=== PATIENT | female | born 1960 | race Caucasian/White ===

== ENCOUNTER 2016-10-07 09:48 | Emergency (ER) | payer BC ==
[2016-10-07 11:04] VITALS: BP 138/79
--- NOTE | 2016-10-07 12:33 | UC ---
Knee Pain HPI - HPI Summary HPI Summary: got clipped in the right knee by a playful dog last night, patient fell to the ground - History of Current Complaint Chief Complaint: UCLowerExtremity Stated Complaint: LEG COMPLAINT Time Seen by Provider: 10/07/16 12:24 Hx Obtained From: Patient ?: No Onset/Duration: Sudden Onset, Lasting Days - 1, Still Present Severity Initially: Moderate Severity Currently: Moderate - with certian movement and weight bearing Location Of Injury: lateral right knee Pain Intensity: 4 Pain Scale Used: 0-10 Numeric Character: Aching, Stiffness Aggravating Factor(s): Movement, Weight Bearing Alleviating Factor(s): Rest, Position Associated Signs And Symptoms: Positive: Swelling Able to Bear Weight: Yes - with pain - Allergies/Home Medications Allergies/Adverse Reactions: Allergies Allergy/AdvReac Type Severity Reaction Status Date / Time No Known Allergies Allergy Verified 04/01/16 11:30 PMH/Surg Hx/FS Hx/Imm Hx Previously Healthy: Yes Endocrine History Of: Denies: Diabetes, Thyroid Disease Cardiovascular History Of: Denies: Cardiac Disorders, Hypertension, Pacemaker/ICD Respiratory History Of: Denies: COPD, Asthma GI/ History Of: Denies: Ulcer, Renal Disease - Surgical History Surgical History: Yes Surgery Procedure, Year, and Place: CARPAL TUNNEL BILATERAL WRIST wisdom teeth removed - Family History Known Family History: Positive: None Family History: no family history of cardiovascular issues - Social History Occupation: Employed Full-time Lives: With Family Alcohol Use: Weekly Substance Use Type: None Smoking Status (MU): Never Smoked Tobacco Have You Smoked in the Last Year: No - Immunization History Most Recent Influenza Vaccination: [id number] Most Recent Tetanus Shot: Uknown Review of Systems Constitutional: Negative Skin: Negative Eyes: Negative ENT: Negative Respiratory: Negative Cardiovascular: Negative Gastrointestinal: Negative Genitourinary: Negative Motor: Negative Neurovascular: Negative Musculoskeletal: Arthralgia - right knee Neurological: Negative Psychological: Negative All Other Systems Reviewed And Are Negative: Yes Physical Exam Triage Information Reviewed: Yes Appearance: Well-Appearing, No Pain Distress, Well-Nourished Vital Signs: Initial Vital Signs Temp 98.0 F 10/07/16 10:58 Pulse 74 10/07/16 10:58 Resp 18 10/07/16 10:58 BP 138/79 10/07/16 10:58 Pulse Ox 100 10/07/16 10:58 Vital Signs Reviewed: Yes Eye Exam: Normal Eyes: Positive: Conjunctiva Clear ENT Exam: Normal ENT: Positive: Normal ENT inspection, Hearing grossly normal. Negative: Nasal congestion, Nasal drainage, Trismus, Muffled/hoarse voice Neck exam: Normal Neck: Positive: Supple, Nontender Respiratory Exam: Normal Respiratory: Positive: Chest non-tender, No respiratory distress, No accessory muscle use Cardiovascular Exam: Normal Cardiovascular: Positive: RRR, Pulses Normal, Brisk Capillary Refill Musculoskeletal Exam: Normal Musculoskeletal: Positive: Strength Intact, ROM Intact, No Edema Neurological Exam: Normal Neurological: Positive: Alert, Muscle Tone Normal Psychological Exam: Normal Skin Exam: Normal Diagnostics - Radiology No standard instances Xray Interpretation: No Acute Changes Radiology Interpretation Completed By: ED Physician, Radiologist Knee Pain Course/Dx - Course Course Of Treatment: knee immoblizer, crutches, ice, ibuprofen follow with ortho in 3-4 days - Differential Dx/Diagnosis Differential Diagnosis/HQI/PQRI: Contusion, Fracture (Closed), Internal Derangement Of Knee, Sprain, Strain Provider Diagnoses: Right Knee Sprain Discharge - Discharge Plan Condition: Stable Disposition: HOME Patient Education Materials: Ibuprofen (By mouth), Crutch Instructions (ED), Knee Pain (ED) Referrals: Issac Abad MD [Medical Doctor] - 4 Days Shankar Junior MD [Primary Care Provider] -
--- NOTE | 2016-10-07 13:11 | RAD ---
Indication: Right knee pain, lateral knee pain. 4 views of the right knee demonstrates no fracture. No other bone or joint abnormality is identified. IMPRESSION: No fracture of the right knee is noted.
== END 2016-10-07 13:30 | disposition home or self-care (01) ==
LOC: UCEAST 09:48
DX: S83.91XA Sprain of unspecified site of right knee, initial encounter (principal); W54.1XXA Struck by dog, initial encounter; Y93.9 Activity, unspecified; Y92.9 Unspecified place or not applicable
CPT/HCPCS: 99212; G0463

== ENCOUNTER 2016-10-24 08:35 | Emergency (ER) | payer BC ==
[2016-10-24 08:49] VITALS: BP 134/76
[2016-10-24] MEDS ORDERED: Tetan/Diph/Pertus SYR(Tdap)* 0.5 ML SYR(BOOSTRIX) use SYR IM ONE (09:00)
--- NOTE | 2016-10-24 12:50 | UC ---
IMichoacano,Ella, scribed for Rosaura Segovia MD on 10/24/16 at 0902 . Laceration HPI - HPI Summary HPI Summary: THis 56 y/o female presents to [facility] for forehead laceration since 1930 PM. She was opening a closet door when she impacted her forehead with the door. Pt denies any LOC, but reports AMBRIZ and "a lot of bleeding" at the time of onset. Laceration was bandaged with band-aid, and mild bleeding is noted overnight. No bleeding is noted at the time of initial evaluation. Pt is not sure if she is UTD with tetanus. Plan of care involving simple skin adhesive is discussed with pt, and she is agreeable. She is instructed to avoid sunlight and stretching of wound until complete wound closure. - History Of Current Complaint Chief Complaint: UCLaceration Stated Complaint: HEAD LACERATION Time Seen by Provider: 10/24/16 08:49 Hx Obtained From: Patient, Medical Records Laceration Location: Head - forehead Mechanism Of Injury: Blunt Trauma Onset/Duration: Sudden Onset, Lasting Hours, Still Present Severity: Mild Pain Intensity: 0 Pain Scale Used: 0-10 Numeric Aggravating Factors: Nothing - Allergies/Home Medications Allergies/Adverse Reactions: Allergies Allergy/AdvReac Type Severity Reaction Status Date / Time No Known Allergies Allergy Verified 10/24/16 08:37 PMH/Surg Hx/FS Hx/Imm Hx Previously Healthy: Yes - Surgical History Surgical History: Yes Surgery Procedure, Year, and Place: CARPAL TUNNEL BILATERAL WRIST. wisdom teeth removed - Family History Known Family History: Positive: Diabetes - Father -- type II. Negative: Cardiac Disease - Social History Lives: With Family Alcohol Use: Weekly Alcohol Amount: 1xweek Substance Use Type: None Smoking Status (MU): Never Smoked Tobacco Have You Smoked in the Last Year: No - Immunization History Most Recent Influenza Vaccination: [id number] Most Recent Tetanus Shot: Uknown Review of Systems Constitutional: Negative Skin: Other - Vertical laceration at forehead. Bleeding controlled Eyes: Negative ENT: Negative Respiratory: Negative Cardiovascular: Negative Gastrointestinal: Negative Genitourinary: Negative Motor: Negative Neurovascular: Negative Musculoskeletal: Negative Neurological: Headache - Currently resolved Psychological: Negative All Other Systems Reviewed And Are Negative: Yes Physical Exam Triage Information Reviewed: Yes Appearance: Well-Appearing, No Pain Distress, Well-Nourished Vital Signs: Initial Vital Signs Temp 97.9 F 10/24/16 08:39 Pulse 98 10/24/16 08:39 Resp 18 10/24/16 08:39 BP 134/76 10/24/16 08:39 Pulse Ox 98 10/24/16 08:39 Vital Signs Reviewed: Yes Eyes: Positive: Conjunctiva Clear ENT: Positive: Normal ENT inspection Neck: Positive: Supple Respiratory: Positive: Lungs clear, Normal breath sounds, No respiratory distress Cardiovascular: Positive: RRR, No Murmur, Pulses Normal, Brisk Capillary Refill Musculoskeletal: Positive: Strength Intact, ROM Intact Neurological Exam: Normal Neurological: Positive: Alert, Muscle Tone Normal Psychological Exam: Normal Skin: Positive: Other - 2 cm vertical lacertaion on right-mid lower forehead, bleeding controlled, does not separate when touched Laceration Repair - Laceration Repair 1 Description: Linear Laceration Size After Repair: Length (cm) - 2 cm Modified For Repair: No Cleansing Completed Via Routine Prep: Yes Irrigation With Pressure Irrigation Device: No Closure Material: Skin Adhesive Laceration Course/Dx - Course/Dx Course Of Treatment: discussed with pt that wound is too old for sutures, and does not really need sutures for repair because it does not separate or open up. Discussed possibility of skin adhesive and pt is agreeable. - Differential Dx - Laceration/Wound Differental Diagnoses: Abrasion, Healing Wound, Laceration Provider Diagnoses: facial laceration with skin adhesive closure Discharge - Discharge Plan Condition: Stable Disposition: HOME Patient Education Materials: Skin Adhesive Care (ED) Referrals: Shankar Junior MD [Primary Care Provider] - Additional Instructions: Keep the wound clean and dry. You do not need to apply antibiotic ointment. The glue will fade away. After the laceration has healed you may want to look at the product "new gel plus" to help decrease the appearance of your wound. Remember to use sunscreen and use a hat to keep sun away from the wound to decrease the appearance of the scar. You were given a TDaP shot to update your tetanus, diphtheria and pertussis vaccinations. This shot is good for 10 years. Return to urgent care if you have any new or worsening symptoms. The documentation as recorded by the Michoacano smith Soohyun accurately reflects the service I personally performed and the decisions made by , Rosaura Segovia MD.
== END 2016-10-24 09:20 | disposition home or self-care (01) ==
LOC: UCEAST 08:35
DX: S01.81XA Laceration without foreign body of other part of head, initial encounter (principal); W45.8XXA Other foreign body or object entering through skin, initial encounter; W22.09XA Striking against other stationary object, initial encounter; Y93.9 Activity, unspecified; Y92.9 Unspecified place or not applicable; Z23 Encounter for immunization
CPT/HCPCS: 12011; G0168; 90471; 90715; 99211; G0463

== ENCOUNTER 2017-01-06 15:35 | Emergency (ER) | payer BC ==
[2017-01-06 16:10] VITALS: BP 125/79
--- NOTE | 2017-01-06 16:42 | UC ---
Throat Pain/Nasal Kp HPI - HPI Summary HPI Summary: 56 yo female with sinus pressure and pain as well as post nasal drip x >2 months no f/c low energy bilateral ear discomfort hx sinusitis followed by Dr. Luna - History of Current Complaint Chief Complaint: UCGeneralIllness Stated Complaint: SINUS COMPLAINT Time Seen by Provider: 01/06/17 15:58 Hx Obtained From: Patient Onset/Duration: Gradual Onset Severity: Moderate Pain Intensity: 4 Pain Scale Used: 0-10 Numeric Cough: None Associated Signs & Symptoms: Positive: Sinus Discomfort, Nasal Discharge Related History: Seasonal Allergies - Epiglottits Risk Factors Epiglottis Risk Factors: Negative - Allergies/Home Medications Allergies/Adverse Reactions: Allergies Allergy/AdvReac Type Severity Reaction Status Date / Time No Known Allergies Allergy Verified 01/06/17 15:53 Home Medications: Home Medications Acetaminophen-Guaifenesin [Refenesen Chest Congestio 650-400 mg] 1 tab PO ONCE PRN 01/06/17 [History Confirmed 01/06/17] PMH/Surg Hx/FS Hx/Imm Hx Previously Healthy: Yes Endocrine History Of: Denies: Diabetes, Thyroid Disease Cardiovascular History Of: Denies: Cardiac Disorders, Hypertension, Pacemaker/ICD Respiratory History Of: Denies: COPD, Asthma GI/ History Of: Denies: Ulcer, Renal Disease - Surgical History Surgical History: Yes Surgery Procedure, Year, and Place: CARPAL TUNNEL BILATERAL WRIST. wisdom teeth removed - Family History Known Family History: Positive: Diabetes - Father -- type II., Other - MALDONADO Negative: Cardiac Disease Family History: no family history of cardiovascular issues - Social History Alcohol Use: Weekly Alcohol Amount: 1xweek Substance Use Type: None Smoking Status (MU): Never Smoked Tobacco Have You Smoked in the Last Year: No - Immunization History Most Recent Influenza Vaccination: [id number] Most Recent Tetanus Shot: Uknown Review of Systems Constitutional: Fatigue Skin: Negative Eyes: Negative ENT: Ear Ache, Nasal Discharge Respiratory: Negative Cardiovascular: Negative Gastrointestinal: Negative Genitourinary: Negative Motor: Negative Neurovascular: Negative Musculoskeletal: Negative Neurological: Headache Psychological: Negative All Other Systems Reviewed And Are Negative: Yes Physical Exam Triage Information Reviewed: Yes Appearance: Well-Appearing, No Pain Distress, Well-Nourished Vital Signs: Initial Vital Signs Temp 98 F 01/06/17 15:45 Pulse 81 01/06/17 15:45 Resp 16 01/06/17 15:45 BP 125/79 01/06/17 15:45 Pulse Ox 100 01/06/17 15:45 Vital Signs Reviewed: Yes Eyes: Positive: Conjunctiva Clear ENT: Positive: Hearing grossly normal, Nasal congestion, TM bulging, Other: - bilat max and ethmoid tenderness. Negative: TM red, Tonsillar swelling, Tonsillar exudate Neck: Positive: Supple, Nontender, No Lymphadenopathy Respiratory: Positive: Lungs clear, Normal breath sounds, No respiratory distress, No accessory muscle use Cardiovascular: Positive: RRR, No Murmur Musculoskeletal: Positive: ROM Intact, No Edema Neurological: Positive: Alert Psychological Exam: Normal Skin Exam: Normal Throat Pain/Nasal Course/Dx - Differential Dx/Diagnosis Provider Diagnoses: acute sinusitis Discharge - Discharge Plan Condition: Stable Disposition: HOME Prescriptions: Cefuroxime Axetil [Ceftin 250 MG] 250 mg PO BID #20 tab Patient Education Materials: Sinusitis (ED) Referrals: Shankar Junior MD [Primary Care Provider] - 1 Week (if not better)
== END 2017-01-06 16:46 | disposition home or self-care (01) ==
LOC: UCCORT 15:35
DX: J01.90 Acute sinusitis, unspecified (principal); H92.03 Otalgia, bilateral
CPT/HCPCS: 99212; G0463

== ENCOUNTER 2017-06-24 10:45 | Emergency (ER) | payer BC ==
[2017-06-24 10:53] VITALS: BP 125/90
--- NOTE | 2017-06-24 11:11 | UC ---
Skin Complaint HPI - History of Current Complaint Chief Complaint: Minoo Stated Complaint: BEE STING Hx Obtained From: Patient - was stung by a hornet above R eye last evening, was very painful and became swollen. she did take benadryl 50mg in night which gave only little relief. Today face appears swollen under eye. + ?: No Onset/Duration: Sudden Onset Onset Severity: Severe Current Severity: Moderate Location: Discrete, Face Aggravating Factor(s): Touch Alleviating Factor(s): Nothing Associated Signs & Symptoms: Positive: Tenderness. Negative: Nausea, Weakness, Difficulty Breathing, Cough, Wheezing, Chest Pain, Throat Tightening, Syncope, Red Streaks Related History: Insect Bite/Sting - white faced hornet - Allergy/Home Medications Allergies/Adverse Reactions: Allergies Allergy/AdvReac Type Severity Reaction Status Date / Time No Known Allergies Allergy Verified 06/24/17 10:47 Home Medications: Home Medications diPHENhydraMINE PO* [Benadryl PO 25 MG TAB*] 2 tab PO 06/24/17 [History] Review of Systems Constitutional: Negative Skin: Negative - no rash at any time ENT: Negative Respiratory: Negative Cardiovascular: Negative Genitourinary: Negative Psychological: Negative Is Patient Immunocompromised?: Yes All Other Systems Reviewed And Are Negative: Yes PMH/Surg Hx/FS Hx/Imm Hx Previously Healthy: Yes Neurological History: Other - R sided facial neuralgia Other Neurological History: neruralgia Psychological History: Depression - Surgical History Surgical History: Yes Surgery Procedure, Year, and Place: CARPAL TUNNEL BILATERAL WRIST. wisdom teeth removed - Family History Known Family History: Positive: Diabetes - Father -- type II., Other - MALDONADO Negative: Cardiac Disease Family History: no family history of cardiovascular issues - Social History Occupation: Employed Full-time Lives: With Family Alcohol Use: Weekly Alcohol Amount: 1xweek Substance Use Type: None Smoking Status (MU): Never Smoked Tobacco Have You Smoked in the Last Year: No - Immunization History Most Recent Influenza Vaccination: [id number] Most Recent Tetanus Shot: Uknown Physical Exam Triage Information Reviewed: Yes Appearance: Well-Appearing, No Pain Distress, Well-Nourished Vital Signs: Initial Vital Signs Temp 98.7 F 06/24/17 10:49 Pulse 76 06/24/17 10:49 Resp 16 06/24/17 10:49 BP 125/90 06/24/17 10:49 Pulse Ox 98 06/24/17 10:49 Vital Signs Reviewed: Yes Eyes: Positive: Conjunctiva Clear, Other: - periorbital swelling R eye, no change PEARRLA ENT: Positive: Normal ENT inspection Neck exam: Normal Respiratory Exam: Normal Respiratory: Positive: Lungs clear. Negative: Wheezing Cardiovascular Exam: Normal Cardiovascular: Positive: RRR, No Murmur, Pulses Normal Neurological Exam: Normal Neurological: Positive: Alert Psychological Exam: Normal Skin: Negative: rashes Course/Dx - Differential Diagnoses - Skin Complaint Differential Diagnoses: Other - local reaction bee sting systemic allergic rx - Diagnoses Provider Diagnoses: Bee sting Discharge - Discharge Plan Condition: Good Disposition: HOME Patient Education Materials: Insect Bite or Sting (ED) Referrals: Shankar Junior MD [Primary Care Provider] - 2 Days (if no better) Additional Instructions: apply cool packs to R eye for swelling and pain Use benadryl 50mg every 6 hours for the next 24-48hours Then may transition to claritin or zyrtec (over the counter) if needed
== END 2017-06-24 11:15 | disposition home or self-care (01) ==
LOC: UCEAST 10:45
DX: T63.441A Toxic effect of venom of bees, accidental (unintentional), initial encounter (principal); W57.XXXA Bitten or stung by nonvenomous insect and other nonvenomous arthropods, initial encounter; Y92.9 Unspecified place or not applicable
CPT/HCPCS: 99211; G0463

== ENCOUNTER 2018-07-10 13:10 | Emergency (ER) | payer BC ==
[2018-07-10 13:47] VITALS: BP 121/83
--- NOTE | 2018-07-10 14:09 | UC ---
Complaint Female HPI - HPI Summary HPI Summary: urinary urgency , dysuria x 1 day + frequency , no fever, no chills, no cva tenderness - History Of Current Complaint Chief Complaint: UCGU Stated Complaint: URINARY COMPLAINT Time Seen by Provider: 07/10/18 13:43 Hx Obtained From: Patient Hx Last Menstrual Period: n/a Onset/Duration: Gradual Onset, Lasting Days - 1, Still Present Timing: Constant Severity Initially: Moderate Severity Currently: Moderate Pain Intensity: 4 Pain Scale Used: 0-10 Numeric Character: Cramping Aggravating Factor(s): Urination Alleviating Factor(s): Nothing Associated Signs And Symptoms: Negative: Fever, Back Pain, Vaginal Bleeding/ Discharge, Vaginal Discharge, Nausea, Vomiting(# Of Episodes =), Genital Swelling, Genital Blisters, Retained Foregin Body (Specify) - Allergies/Home Medications Allergies/Adverse Reactions: Allergies Allergy/AdvReac Type Severity Reaction Status Date / Time No Known Allergies Allergy Verified 07/10/18 13:42 Home Medications: Home Medications Mirabegron (NF) [Myrbetriq (NF)] 50 mg PO DAILY 07/10/18 [History Confirmed 06/19] PMH/Surg Hx/FS Hx/Imm Hx - Additional Past Medical History Additional PMH: trigeminal neuralgia - Surgical History Surgical History: Yes Surgery Procedure, Year, and Place: CARPAL TUNNEL BILATERAL WRIST. wisdom teeth removed - Family History Known Family History: Positive: Hypertension, Diabetes - Father -- type II., Other - MALDONADO Negative: Cardiac Disease Family History: no family history of cardiovascular issues - Social History Alcohol Use: Weekly Alcohol Amount: 1xweek Substance Use Type: None Smoking Status (MU): Never Smoked Tobacco Have You Smoked in the Last Year: No - Immunization History Most Recent Influenza Vaccination: 2015/2016 Most Recent Tetanus Shot: Uknown Review of Systems Constitutional: Negative Skin: Negative Eyes: Negative ENT: Negative Respiratory: Negative Cardiovascular: Negative Genitourinary: Dysuria, Hematuria, Frequency, Urgency Neurovascular: Negative Musculoskeletal: Negative Is Patient Immunocompromised?: No All Other Systems Reviewed And Are Negative: Yes Physical Exam Triage Information Reviewed: Yes Appearance: Well-Appearing, No Pain Distress, Well-Nourished Vital Signs: Initial Vital Signs Temp 99 F 07/10/18 13:39 Pulse 88 07/10/18 13:39 Resp 15 07/10/18 13:39 BP 121/83 07/10/18 13:39 Pulse Ox 98 07/10/18 13:39 Vital Signs Reviewed: Yes Eye Exam: Normal Eyes: Positive: Conjunctiva Clear ENT: Positive: Normal ENT inspection, Hearing grossly normal, Pharynx normal Neck: Positive: Supple, Nontender, No Lymphadenopathy Respiratory: Positive: Chest non-tender, Lungs clear, Normal breath sounds Cardiovascular: Positive: RRR, No Murmur, Pulses Normal Skin Exam: Normal Complaint Female Dx - Differential Dx/Diagnosis Provider Diagnoses: dysuria Discharge - Sign-Out/Discharge Documenting (check all that apply): Patient Departure All imaging exams completed and their final reports reviewed: No Studies - Discharge Plan Condition: Stable Disposition: HOME Patient Education Materials: Dysuria (ED) Referrals: Shankar Junior MD [Primary Care Provider] - 5 Days Additional Instructions: normal UA no UTI please follow up with your Urologist - Billing Disposition and Condition Condition: STABLE Disposition: Home
== END 2018-07-10 14:06 | disposition home or self-care (01) ==
LOC: UCCORT 13:10
DX: R30.0 Dysuria (principal)
CPT/HCPCS: 81003; 99211; G0463

== ENCOUNTER 2019-01-11 14:03 | Emergency (ER) | payer BC ==
[2019-01-11 15:21] VITALS: BP 128/73
--- NOTE | 2019-01-11 15:48 | UC ---
UC General HPI - HPI Summary HPI Summary: sinus headache for a month. her ent tx with steroids which helped but it never cleared. now worse again and not relieved by pseudaphed. - History of Current Complaint Chief Complaint: UCHeadache Stated Complaint: SINUSES Time Seen by Provider: 01/11/19 15:39 Hx Obtained From: Patient Hx Last Menstrual Period: n/a Onset/Duration: Gradual Onset Timing: Constant Pain Intensity: 6 Associated Signs & Symptoms: Positive: Headache - Allergy/Home Medications Allergies/Adverse Reactions: Allergies Allergy/AdvReac Type Severity Reaction Status Date / Time No Known Allergies Allergy Verified 07/10/18 13:42 PMH/Surg Hx/FS Hx/Imm Hx - Additional Past Medical History Additional PMH: trigeminal neuralgia, overactive bladder, chronic sinusitis - Surgical History Surgical History: Yes Surgery Procedure, Year, and Place: CARPAL TUNNEL BILATERAL WRIST. wisdom teeth removed - Family History Known Family History: Positive: Hypertension, Diabetes - Father -- type II., Other - MALDONADO Negative: Cardiac Disease Family History: no family history of cardiovascular issues - Social History Occupation: Employed Full-time Alcohol Use: Weekly Alcohol Amount: 1xweek Substance Use Type: None Smoking Status (MU): Never Smoked Tobacco Have You Smoked in the Last Year: No - Immunization History Most Recent Influenza Vaccination: 2015/2016 Most Recent Tetanus Shot: Uknown Review of Systems All Other Systems Reviewed And Are Negative: Yes ENT: Positive: Sinus Congestion, Sinus Pain/Tenderness Neurological: Positive: Headache Physical Exam Triage Information Reviewed: Yes Appearance: Well-Appearing Vital Signs: Initial Vital Signs Temp 98.9 F 01/11/19 15:14 Pulse 80 01/11/19 15:14 Resp 16 01/11/19 15:14 BP 128/73 01/11/19 15:14 Pulse Ox 99 01/11/19 15:14 Vital Signs Reviewed: Yes Eyes: Positive: Conjunctiva Clear ENT: Positive: Pharynx normal, Nasal congestion, TMs normal, Sinus tenderness. Negative: Nasal drainage Neck: Positive: Supple, Nontender, No Lymphadenopathy Respiratory: Positive: Lungs clear, Normal breath sounds Cardiovascular: Positive: RRR, No Murmur Abdomen Description: Positive: Nontender, No Organomegaly, Soft Bowel Sounds: Positive: Present Musculoskeletal: Positive: ROM Intact Neurological: Positive: Alert Psychological: Positive: Age Appropriate Behavior Skin Exam: Normal Course/Dx - Diagnoses Provider Diagnosis: Sinusitis Discharge - Sign-Out/Discharge Documenting (check all that apply): Patient Departure All imaging exams completed and their final reports reviewed: No Studies - Discharge Plan Condition: Stable Disposition: HOME Prescriptions: Amoxicillin/Clavulanate TAB* [Augmentin TAB 875*] 875 mg PO BID 10 Days #20 tab Patient Education Materials: Sinusitis (ED) Referrals: Shankar Junior MD [Primary Care Provider] - 7 Days - Billing Disposition and Condition Condition: STABLE Disposition: Home
== END 2019-01-11 15:59 | disposition home or self-care (01) ==
LOC: UCCORT 14:03
DX: J32.9 Chronic sinusitis, unspecified (principal)
CPT/HCPCS: 99212; G0463

== ENCOUNTER 2020-01-25 08:59 | Emergency (ER) | payer BC ==
--- OUTSIDE RECORDS SUMMARY | 2020-01-25 09:10 | XMS REPORT | Continuity of Care Document ---
:1960 External Reference #:[id number] Author Name Lorena Douglas M.D. 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 Onset: 05/14/2015 Skin sensation disturbance Barbara Mosley M.D. Onset: 05/14/2015 Memory impairment Barbara Mosley M.D. Onset: 02/15/2016 Localized, primary osteoarthritis Lorena Douglas M.D. Onset: 10/10/2016 Strain of rotator cuff capsule Mark De Leon MD Onset: 04/02/2019 Social History Type Date Description Comments Sex Unknown Tobacco Use Start: Unknown Never Smoked Cigarettes ETOH Use Consumes 2 glasses of wine per week Tobacco Use Start: Unknown Patient has never smoked Smoking Status Reviewed: 12/09/19 Patient has never smoked Exercise Type/Frequency Exercises regularly Allergies, Adverse Reactions, Alerts Active Allergies Reaction Severity Comments Date No Known Drug Allergy 06/03/2010 Medications Active Medications SIG Qnty Indications Ordering Provider Date Diclofenac Sodium take 1 tablet 60tabs S46.012A Mark De Leon MD 2018 75mg twice a day with Tablets DR radha Matute take 2 capsules 60caps Garrick Hernandez MD 07/05/2012 50mg Capsules by mouth every day (code d) Wellbutrin XL 1 by mouth daily Kamryn Mira, 300mg M.D., FACP Tablets ER 24HR Vyvanse 1 capsule daily 30caps Unknown 60mg Capsules as needed Melatonin 1 by mouth every Unknown 5mg Capsules night at bedtime as needed Benadryl Allergy 1 tablet by mouth Unknown 25mg as needed Tablets Myrbetriq Take 1 Tablet By Unknown 50mg Tablets Mouth Once Daily ER 24HR Medications Administered in Office Medication SIG Qnty Indications Ordering Provider Date Depomedrol 40MG Lorena Douglas M.D. 12/09/2019 Injection Triamcinolone (Kenalog) Mark De Leon MD 03/21/2019 Injection Immunizations CPT Code Status Date Vaccine Lot # [id number] Given 09/10/2008 Influenza Virus 3Yrs & Over Vital Signs Date Vital Result Comment 12/09/2019 11:04am Height 72 inches 6'0" Weight 178.00 lb Heart Rate 87 /min BP Systolic 116 mmHg BP Diastolic 72 mmHg Body Temperature 97.9 F Pain Level 2 BMI (Body Mass Index) 24.1 kg/m2 05/21/2019 9:12am Height 72 inches 6'0" Weight 165.00 lb Heart Rate 86 /min BP Systolic 110 mmHg BP Diastolic 60 mmHg Body Temperature 97.2 F Pain Level 2 BMI (Body Mass Index) 22.4 kg/m2 Results Description No Information Available Procedures Date Code Description Status 12/09/2019 54002 Inject/Drain Joint/Bursa Major W/O US Completed 10/14/2010 [id number] Mammogram Completed 01/08/2009 [id number] Colonoscopy Completed 12/02/2008 908268185 Bone Mineral Density Test Completed 12/02/2008 [id number] Mammogram Completed Medical Devices Description No Information Available Encounters Type Date Location Provider Dx Diagnosis Office Visit 12/09/2019 [facility] Lorena Douglas, Alison7.11 Unilateral primary 10:45a at [facility].Sean osteoarthritis, right knee M25.561 Pain in right knee M25.571 Pain in right ankle and joints of right foot Assessments Date Code Description Provider 12/09/2019 M17.11 Unilateral primary osteoarthritis, right knee Lorena Douglas M.D. 12/09/2019 M25.561 Pain in right knee Lorena Douglas M.D. 12/09/2019 M25.571 Pain in right ankle and joints of right foot Lorena Douglas M.D. Plan of Treatment Future Appointment(s):04/23/2020 9:15 am - Garrick Hernandez MD at [facility]12/09/2019 - Lorena Douglas M.D.M17.11 Unilateral primary osteoarthritis, right kneeFollow up:Follow up: 4 ncfmvQ47.561 Pain in right kneeM25.571 Pain in right ankle and joints of right foot Functional Status Description No Information Available Mental Status Description No Information Available Referrals Description No Information Available
--- OUTSIDE RECORDS SUMMARY | 2020-01-25 09:10 | XMS REPORT | Continuity of Care Document ---
:1960 External Reference #:[id number] Author Name Lorena Douglas M.D. 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 day (code d) Wellbutrin XL 1 by [...] Medication SIG Qnty Indications Ordering Provider Date Triamcinolone (Kenalog) Mark De Leon MD 03/21/2019 Injection Immunizations CPT Code Status Date Vaccine Lot # [id number] Given 09/10/2008 Influenza Virus 3Yrs & Over [...] Information Available Procedures Date Code Description Status 10/14/2010 [id number] Mammogram Completed 01/08/2009 [id number] Colonoscopy Completed 12/02/2008 [id number] Bone Mineral Density Test Completed 12/02/2008 [id number] Mammogram Completed Medical Devices Description No Information Available Encounters Type Date Location Provider Dx Diagnosis Office Visit 12/09/2019 [facility] Lorena Douglas, M17.11 Unilateral primary 10:45a at [place] [facility] osteoarthritis, right knee M25.561 Pain in right [...] 9:15 am - Garrick Hernandez MD at [facility]12/09/2019 - Lorena Douglas M.D.M17.11 Unilateral primary osteoarthritis, right kneeFollow up:Follow up:M25.561 Pain in right kneeNew Xrays:Knee 3 Views RT, Ordered: 12/09/19M25.571 Pain in right ankle and joints of right footNew Xrays:Ankle Right 3+VWS, Ordered: 12/09/19 Functional Status Description No Information Available Mental Status Description No Information Available Referrals Description No Information Available
--- NOTE | 2020-01-25 09:32 | ED ---
Skin Complaint - HPI Summary HPI Summary: Patient is a 59yo F presenting to the ED with right-sided axillary tenderness 2 days. Pt states she has been placing warm compresses to the area since last night and feels since then the pain has increased. Hx of MRSA and axillary abscesses, one time requiring antibiotics which she responded to well. 100.0 temp at home and pt took advil prior to arrival. States she just feels "crappy " but denies nausea, vomiting, diarrhea, cough, congestion, abd pain. Denies sick contacts. States she has not been tested for COVID, but has not been around anyone in over 1 mo. No other symptoms. - History of Current Complaint Chief Complaint: EDRashSkinAbscess Time Seen by Provider: 01/25/20 09:11 Stated Complaint: ABCESS RT ARMPIT PER PT Hx Obtained From: Patient Hx Last Menstrual Period: n/a Onset/Duration: Started Days Ago Skin Exposure Onset/Duration: Days Ago Timing: Constant Onset Severity: Moderate Current Severity: Moderate Pain Intensity: 7 Pain Scale Used: 0-10 Numeric Skin Location: Other: - R axillary Character: Pain, Redness, Raised, Painful Aggravating Symptom(s): Nothing Alleviating Symptom(s): Nothing Associated Signs & Symptoms: Fever - Allergy/Home Medications Allergies/Adverse Reactions: Allergies Allergy/AdvReac Type Severity Reaction Status Date / Time No Known Allergies Allergy Verified 01/25/20 09:04 Home Medications: Home Medications Pregabalin 100 mg CAP (*) [Lyrica 100 mg CAP (*)] 100 mg PO QPM 12/18/13 [ History Confirmed 05/03/19] Mirabegron (NF) [Myrbetriq (NF)] 50 mg PO DAILY 07/10/18 [History Confirmed 11/20] BuPROPion XL* [Bupropion XL*] 300 mg PO DAILY 04/29/19 [History Confirmed ] Lisdexamfetamine (NF) [Vyvanse (NF)] 70 mg PO DAILY PRN 05/03/19 [History Confirmed 05/03/19] Zolpidem TAB* [Ambien TAB*] 5 mg PO BEDTIME PRN 05/03/19 [History Confirmed 11/20] Sulfamethox/Trimethoprim DS* [Bactrim DS 800/160 TAB*] 1 tab PO BID #10 tab [Rx] PMH/Surg Hx/FS Hx/Imm Hx Previously Healthy: Yes Endocrine/Hematology History: Denies: Hx Diabetes, Hx Thyroid Disease Cardiovascular History: Denies: Hx Hypertension, Hx Pacemaker/ICD Respiratory History: Denies: Hx Asthma, Hx Chronic Obstructive Pulmonary Disease (COPD) GI History: Denies: Hx Ulcer History: Denies: Hx Renal Disease Sensory History: Denies: Hx Hearing Aid Psychiatric History: Denies: Hx Panic Disorder - Surgical History Surgery Procedure, Year, and Place: CARPAL TUNNEL BILATERAL WRIST. wisdom teeth removed - Immunization History Hx Pertussis Vaccination: No Immunizations Up to Date: Yes Infectious Disease History: No Infectious Disease History: Denies: Hx Clostridium Difficile, Hx Hepatitis, Hx Human Immunodeficiency Virus (HIV), Hx of Known/Suspected MRSA, Hx Shingles, Hx Tuberculosis, Hx Known/ Suspected VRE, Hx Known/Suspected VRSA, History Other Infectious Disease, Traveled Outside the [place] in Last 30 Days - Family History Known Family History: Positive: Hypertension, Diabetes - Father -- type II., Other - MALDONADO Negative: Cardiac Disease Family History: no family history of cardiovascular issues - Social History Occupation: Employed Full-time Lives: With Family Alcohol Use: Weekly Alcohol Amount: 1xweek Hx Substance Use: No Substance Use Type: Reports: None Smoking Status (MU): Never Smoked Tobacco Have You Smoked in the Last Year: No Review of Systems Positive: Fever. Negative: Chills, Fatigue, Skin Diaphoresis Negative: Shortness Of Breath, Cough Genitourinary: Negative Positive: no symptoms reported, see HPI Positive: Other - right arm pain associated with axillary abscess Positive: Other - R axillary tenderness Neurological/Mental Status: Negative All Other Systems Reviewed And Are Negative: Yes Physical Exam Triage Information Reviewed: Yes Vital Signs On Initial Exam: Initial Vitals Temp Pulse Resp BP Pulse Ox 100 F 100 16 135/93 100 01/25/20 09:00 01/25/20 09:00 01/25/20 09:00 01/25/20 09:00 01/25/20 09:00 Vital Signs Reviewed: Yes Appearance: Positive: Well-Appearing, Well-Nourished Skin: Positive: Warm, Skin Color Reflects Adequate Perfusion, Other - 0.8cm diameter non-fluctuant area to the R axillary region without surrounding cellulitis. 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 Course/Dx - Course Course Of Treatment: Patient is evaluated for right axillary tenderness/ abscess. On physical examination, there is a very small 0.8 cm in diameter non- fluctuant erythematous area slightly tender to palpation. Pt able abduct and adduct arm without discomfort. Pt does have discomfort to the R arm without loss of sensation or strength. Worse with movement, better with rest. Described as an ache. D/t the nonfluctuant nature of the small abscess vs. inflamed LN, unlikely to express any drainage at this point. No evidence of cellulitis. Pt did have a 101 temp, HR of 85 and other VS stable. D/t temp, labs were obtained and tylenol given and 1L NS given. Labs WNL. This with good improvement and pt states she feels better. More mobility noted in the arm. Cultures pending. Pt will return to the ED if she continues to have fevers or the mass enlarges despite abx. Bactrim twice daily x 5 days given. - Differential Diagnoses - Skin Complaint Differential Diagnoses: Abscess, Lymphadenitis, Other - inflamed LN, fever - Diagnoses Provider Diagnoses: Axillary abscess - Critical Care Time Critical Care Statement: Critical care time is provided exclusive of any time spent performing procedures. Discharge ED - Sign-Out/Discharge Documenting (check all that apply): Patient Departure - Discharge Plan Condition: Stable Disposition: HOME Prescriptions: Sulfamethox/Trimethoprim DS* [Bactrim DS 800/160 TAB*] 1 tab PO BID #10 tab Patient Education Materials: Abscess (ED) Referrals: Shankar Junior MD [Primary Care Provider] - Additional Instructions: Bactrim twice daily 5 days Continue with warm compresses, you may notice this will cause the abscess to enlarge and come to the surface If you develop continued fevers, sweats, chills or worsening symptoms, please return to the ED If the abscess enlarges despite the antibiotics, please return to the ED - Billing Disposition and Condition Condition: STABLE Disposition: Home
[2020-01-25] MEDS ORDERED: Acetaminophen TAB* 325 MG PO ONE (09:33)
[2020-01-25] MEDS ORDERED: NS 0.9% 1000 ML** 1,000 ML IV ONE (09:55)
[2020-01-25 10:09] LABS: ABS Basophils 0.1 10^3/ul (0-0.2); ABS Eosinophils 0.1 10^3/ul (0-0.6); ABS Lymphocytes 0.4 10^3/ul (1.0-4.8); ABS Monocytes 0.5 10^3/ul (0-0.8); ABS Neutrophils 7.6 10^3/ul (1.5-7.7); Eosinophil % 0.8 %; Hematocrit 40 % (35-47); Hemoglobin 13.6 g/dL (12.0-16.0); Lymphocyte % 4.4 %; Mean Corpuscular HGB Conc 34 g/dL (31-36); Mean Corpuscular Hemoglobin 31 pg (27-31); Mean Corpuscular Volume 91 fL (80-97); Mean Platelet Volume 9.6 fL (7.4-10.4); Platelet Count 174 10^3/uL (150-450); Red Blood Count 4.38 10^6 /uL (3.70-4.87); Red Cell Distribution Width 13 % (10-15); White Blood Count 8.6 10^3/uL (3.5-10.8)
[2020-01-25 10:38] LABS: Albumin 4.3 g/dL (3.2-5.2); Albumin/Globulin Ratio 1.7 (1-3); BUN/Creatinine Ratio 21.4 (8-20); C Reactive Protein 9.54 mg/L (<8.01); Calcium 9.1 mg/dL (8.6-10.3); EGFR African American 83.7 (>60); EGFR Non-African American 69.2 (>60); Globulin 2.6 g/dL (2-4); Potassium 3.9 mmol/L (3.5-5.0); Total Bilirubin 0.5 mg/dL (0.2-1.0); Total Protein 6.9 g/dL (6.4-8.9)
[2020-01-25 11:43] VITALS: BP 128/76
== END 2020-01-25 11:43 | disposition home or self-care (01) ==
LOC: ED 08:59
DX: L02.411 Cutaneous abscess of right axilla (principal)
CPT/HCPCS: 36415; 80053; 85025; 86140; 87040; 96360; 99283; A9270-GY

== ENCOUNTER 2020-01-29 09:24 | Emergency (ER) | payer BC ==
[2020-01-29 09:32] VITALS: BP 102/73
== END 2020-01-29 09:53 | disposition home or self-care (01) ==
LOC: ED 09:24

== ENCOUNTER 2022-06-24 18:02 | Inpatient (IN) ==
[2022-06-24] MEDS ORDERED: NS 0.9% 1000 ml BAG 1,000 ML IV ONE (18:19)
[2022-06-24] MEDS ORDERED: Ondansetron 4 mg VIAL 2 MG/ML 2 ml VIAL IV ONE (18:19)
[2022-06-24 18:35] LABS: ABS Lymphocytes 0.6 10^3/ul (1.0-4.8); ABS Monocytes 0.2 10^3/ul (0-0.8); ABS Neutrophils 4.6 10^3/ul (1.5-7.7); Eosinophil % 0.5 %; Hematocrit 41 % (35-47); Hemoglobin 13.7 g/dL (12.0-16.0); Lymphocyte % 10.7 %; Mean Corpuscular HGB Conc 33 g/dL (31-36); Mean Corpuscular Hemoglobin 30 pg (27-31); Mean Corpuscular Volume 91 fL (80-97); Mean Platelet Volume 8.8 fL (7.4-10.4); Platelet Count 171 10^3/uL (150-450); Red Blood Count 4.53 10^6 /uL (3.70-4.87); Red Cell Distribution Width 13 % (10-15); White Blood Count 5.5 10^3/uL (3.5-10.8)
[2022-06-24 18:47] LABS: INR 0.97 (0.89-1.11)
[2022-06-24 19:02] LABS: Albumin 4.1 g/dL (3.2-5.2); Calcium 8.8 mg/dL (8.6-10.3); Globulin 2.1 g/dL (2-4); Potassium 4.2 mmol/L (3.5-5.0); Total Bilirubin 0.5 mg/dL (0.2-1.0); Total Protein 6.2 g/dL (6.4-8.9); eGFR CKD-EPI 97.5 (>60)
[2022-06-24] MEDS ORDERED: Iohexol 350 (CONTRAST) 500 ML MDV IV ONE (19:08)
[2022-06-24 20:04] LABS: Erythrocyte Sed Rate 7 mm/Hr (0-29)
[2022-06-24] MEDS ORDERED: Ondansetron 4 mg VIAL 2 MG/ML 2 ml VIAL IV PRN (23:26)
[2022-06-24] MEDS ORDERED: Enoxaparin 40 MG/0.4 ML SYR SUBCUT SCH (23:45)
[2022-06-24] MEDS ORDERED: D5NS 0.9% 1000 ml BAG 1,000 ML IV SCH (23:45)
[2022-06-25 06:22] LABS: ABS Eosinophils 0.1 10^3/ul (0-0.6); ABS Lymphocytes 1.2 10^3/ul (1.0-4.8); ABS Monocytes 0.4 10^3/ul (0-0.8); ABS Neutrophils 3.1 10^3/ul (1.5-7.7); Eosinophil % 1.2 %; Hematocrit 37 % (35-47); Hemoglobin 12.7 g/dL (12.0-16.0); Lymphocyte % 24.8 %; Mean Corpuscular HGB Conc 34 g/dL (31-36); Mean Corpuscular Hemoglobin 31 pg (27-31); Mean Corpuscular Volume 90 fL (80-97); Mean Platelet Volume 8.9 fL (7.4-10.4); Nucleated Red Blood Cells % 0.1; Platelet Count 182 10^3/uL (150-450); Red Blood Count 4.16 10^6 /uL (3.70-4.87); Red Cell Distribution Width 13 % (10-15); White Blood Count 4.8 10^3/uL (3.5-10.8)
[2022-06-25 06:48] LABS: Calcium 8.7 mg/dL (8.6-10.3); Magnesium 1.9 mg/dL (1.9-2.7)
[2022-06-25] MEDS ORDERED: Pantoprazole VIAL 40 MG VIAL IV SCH (07:00)
[2022-06-25] MEDS ORDERED: NS 0.9% 1000 ml BAG 1,000 ML IV SCH (11:00)
[2022-06-25 14:28] LABS: Urine Appearance Clear; Urine Bilirubin Negative (Negative); Urine Blood Negative (Negative); Urine Color Yellow; Urine Glucose Negative (Negative); Urine Ketones Negative (Negative); Urine Nitrite Negative (Negative); Urine Protein Negative (Negative); Urine Specific Gravity 1.011 (1.002-1.030); Urine Urobilinogen Negative (Negative)
[2022-06-25 14:40] LABS: Urine Bacteria Absent (Absent); Urine Red Blood Cell Trace(0-2/hpf) (Absent); Urine Squamous Epithelial Cell Present (Absent); Urine White Blood Cell 2+(11-20/hpf) (Absent)
[2022-06-25 19:59] VITALS: BP 144/91
[2022-06-26] MEDS ORDERED: Mirabegron 50 mg ER TAB (NF) PO SCH (09:00)
[2022-06-26] MEDS ORDERED: TROSPIUM CHLORIDE 60 MG PO SCH (09:00)
== END 2022-06-25 20:02 | disposition home or self-care (01) | DRG 137 ==
LOC: ED 18:02 → EDHOLD 23:20
PROVIDERS: ADMIT Student in an Organized Health Care Education/Training Program; ATTEND Student in an Organized Health Care Education/Training Program